=== PATIENT | female | born 1950 | race Caucasian/White ===

== ENCOUNTER 2022-11-29 09:22 | Outpatient (OUT) | payer MEDICARE, OTHER, SELFPAY ==
--- NOTE | 2022-11-29 09:27 | XR_ITS ---
[address] [address] Patient Name: JAVY MORAN MRN: [id number] date: 1950 Sex: F Assigned Patient Location: [facility] Current Patient Location: [facility] Accession/Order Number: [id number] Exam Date: 11/29/2022 10:00 Report Date: 11/29/2022 12:59 At the request of: INOCENCIO PEDRO Procedure: XR DEXA axial skeleton EXAMINATION: XR DEXA axial skeleton, 11/29/2022 10:00 AM EDT HISTORY: Asymptomatic Menopausal State Z78.0 COMPARISON: 2020, 2017, 2014, 2009, 2005 TECHNIQUE: Dual-energy X-ray absorptiometry (DEXA) bone density study performed for the axial skeleton. HISTORY: Asymptomatic Menopausal State Z78.0 FINDINGS: Bone mineral density AP spine L1-L4 measures 1.341 g/sq cm. T score 1.3. WHO classification: Normal. Lowest bone mineral densities in the left femoral neck measuring 0.781 g/sq cm. T score -1.9. WHO classification: Osteopenia XR/XR DEXA axial skeleton IMPRESSION: Osteopenia. Moderate fracture risk. Physiologic reduction from the prior exam Electronically authenticated by: ANTONELLA WILLIS Date: 11/29/2022 12:59
--- NOTE | 2022-11-29 09:27 | MM_ITS ---
Patient: JAVY MORAN Exam Date: 11/29/2022 : 1950 Gender:F Ordering : DR INOCENCIO PEDRO Admission #: [id number] Family : Non-Staff Physician Order #: [id number] CLICK HERE TO VIEW EXAM RADIOLOGY REPORT PROCEDURE: MM TOMOSYNTHESIS SCREENING BI COMPARISON: MG MAMM DX 3D LT CAD, 10/21/2020. MG MAMM SCREEN 3D MONCHO CAD, 11/26/2021. INDICATIONS: Screening Calculator Name NCI Breast Cancer Risk Assessment Tool 5 Year Breast Cancer Risk 2.30% Lifetime Breast Cancer Risk 6.40% Personal Breast Cancer No Personal Ovarian Cancer No Treatments None Family Cancers Sister with bladder cancer at age 70; Father with bladder cancer at age 60. LOCATION: [facility] BREAST COMPOSITION: Scattered areas fibroglandular density. FINDINGS: DIAGNOSTIC CATEGORY 2--BENIGN FINDING. NO CHANGE FROM COMPARISON. Scattered benign-appearing nodules are present. Scattered benign-appearing calcifications are present. Scattered benign-appearing lymph nodes are present. RIGHT BREAST: No significant suspicious finding. LEFT BREAST: No significant suspicious finding. RECOMMENDATIONS: ROUTINE MAMMOGRAM AND CLINICAL EVALUATION IN 12 MONTHS. PLEASE NOTE: A NORMAL MAMMOGRAM DOES NOT EXCLUDE THE POSSIBILITY OF BREAST CANCER. A CLINICALLY SUSPICIOUS PALPABLE LUMP SHOULD BE BIOPSIED. Dictated by: Quentin Mandujano MD on 11/29/2022 at 10:41 Approved by: Quentin Mandujano MD on 11/29/2022 at 10:44
== END 2022-11-29 09:23 | disposition home or self-care (01) ==
LOC: MAMMO 09:22
PROVIDERS: Visit Provider Obstetrics & Gynecology
DX: Z12.31 Encounter for screening mammogram for malignant neoplasm of breast (principal); Z78.0 Asymptomatic menopausal state; Z80.52 Family history of malignant neoplasm of bladder; M85.80 Other specified disorders of bone density and structure, unspecified site
CPT/HCPCS: 77063; 77067; 77080

== ENCOUNTER 2023-12-05 10:02 | Outpatient (OUT) | payer MEDICARE, OTHER, SELFPAY ==
--- NOTE | 2023-12-05 | MM_ITS ---
Patient Name: JAVY MORAN MR#: [id number] : 1950 Exam Date: 12/05/2023 Ordering Doctor: DR INOCENCIO PEDRO RADIOLOGY REPORT PROCEDURE: MM TOMOSYNTHESIS SCREENING BI COMPARISON: MG MAMM SCREEN 3D [place] CAD, 11/26/2021. MM TOMOSYNTHESIS SCREENING BI, 11/29/2022. INDICATIONS: Screening Mammogram Calculator Name NCI Breast Cancer Risk Assessment Tool 5 Year Breast Cancer Risk 2.40% Lifetime Breast Cancer Risk 6.10% Personal Breast Cancer No Personal Ovarian Cancer No Treatments None Family Cancers Sister with bladder cancer at age 70; Father with bladder cancer at age 60. LOCATION: [facility] BREAST COMPOSITION: There are scattered areas of fibroglandular density. FINDINGS: DIAGNOSTIC CATEGORY 2--BENIGN FINDING. NO CHANGE FROM COMPARISON. Scattered benign-appearing nodules are present. Scattered benign-appearing calcifications are present. Scattered benign-appearing lymph nodes are present. RIGHT BREAST: No significant suspicious finding. LEFT BREAST: No significant suspicious finding. RECOMMENDATIONS: ROUTINE MAMMOGRAM AND CLINICAL EVALUATION IN 12 MONTHS. PLEASE NOTE: A NORMAL MAMMOGRAM DOES NOT EXCLUDE THE POSSIBILITY OF BREAST CANCER. A CLINICALLY SUSPICIOUS PALPABLE LUMP SHOULD BE BIOPSIED. Dictated by: Quentin Mandujano MD on 12/05/2023 at 12:17 Approved by: Quentin Mandujano MD on 12/05/2023 at 12:18
== END 2023-12-05 10:03 | disposition home or self-care (01) ==
PROVIDERS: PCP Family Medicine; Visit Provider Obstetrics & Gynecology
DX: Z12.31 Encounter for screening mammogram for malignant neoplasm of breast (principal); Z80.52 Family history of malignant neoplasm of bladder
CPT/HCPCS: 77063; 77067